=== PATIENT | male | born 1980 | race African-American/Black ===

== ENCOUNTER 2019-03-12 13:55 | Emergency (ER) | payer OTHER ==
[~2019-03-12] VITALS: Ht 180.3 cm; Wt 99.8 kg
--- NOTE | 2019-03-12 14:19 | PHYS DOC ---
Past Medical History Past Medical History: Hypertension, Schizophrenia Adult General Chief Complaint Chief Complaint: LACERATION/AVULSION HPI HPI Patient is a 42-year-old male, who arrives [facility], with a self-inflicted wound in his left antecubital fossa. The patient has a history of numerous previous attempts at self-harm in the past. He states he was trying to end his life today. He apparently obtained a razor illegally in the skilled nursing and cut his left arm. He has a wound with venous oozing on the medial aspect of his left antecubital fossa. His last tetanus was in May. He has no other injuries. Review of Systems Review of Systems Constitutional: Denies fever or chills [] Musculoskeletal: Denies back pain or joint pain [] Neurologic: Denies headache, focal weakness or sensory changes [] Psychiatric: Reports suicidal ideation. Current Medications Current Medications Current Medications Medications (Trade) Dose Ordered Sig/Alberto Start Time Stop Time Status Last Admin Dose Admin Lidocaine HCl (Lidocaine 1% 20ml Vial) 20 ml STK-MED ONCE 03/12/19 14:26 03/12/19 14:26 DC Lidocaine/ Epinephrine (LIDOCAINE 1%-EPI 1:100,000 Multi-Dose) 20 ml 1X ONCE 03/12/19 14:30 03/12/19 14:31 DC Allergies Allergies Allergies Coded Allergies Type Severity Reaction Last Updated Verified acetaminophen Allergy Unknown 03/12/19 Yes chlorpromazine Allergy Unknown 03/12/19 Yes haloperidol Allergy Unknown 03/12/19 Yes risperidone Allergy Unknown 03/12/19 Yes Physical Exam Physical Exam PHYSICAL EXAM: CONSTITUTIONAL: Well developed, well nourished HEAD: normocephalic, atraumatic EENT: PERRL, EOMI. Conjunctivae normal color, sclerae non-icteric; moist mucous membranes. NECK: Supple, non-tender; no meningismus. LUNGS: Lungs CTA, breathing even and unlabored. Normal air movement. HEART: Regular rate and rhythm, no murmur CHEST: No deformity; non-tender ABDOMEN: The abdomen is soft, and non-tender, no masses or bruits. EXTREM: Normal ROM; no deformity, no calf tenderness. Normal pulses palpable in all extremities. There is no pedal edema. There is an approximately 5 cm laceration on the medial aspect of the left antecubital fossa, with venous oozing without arterial bleeding. There is a palpable radial pulse on the distal left wrist. There is a weakly paplpable and strongly dopplerable ulnar pulse on the left arm. There are numerous scars, consistent with prior self-inflicted wounds on the forearms bilaterally. SKIN: No rash; no diaphoresis NEURO: Alert; normal speech and cognition; CN's grossly intact; strength grossly intact without focal deficit. BACK: No CVA TTP. Current Patient Data Vital Signs Vital Signs Date Time Temp Pulse Resp B/P (MAP) Pulse Ox O2 Delivery O2 Flow Rate FiO2 03/12/19 14:24 83 Room Air 03/12/19 13:55 97.6 22 87/76 (80) 100 97.6 EKG EKG [] Radiology/Procedures Radiology/Procedures [] Course & Med Decision Making Course & Med Decision Making LACERATION REPAIR PROCEDURE NOTE: The 5 centimeter laceration on the left arm was irrigated copiously with normal saline, anesthetized with 1% lidocaine with epinephrine, prepped with Betadine, and draped with sterile drapes. Sterile technique was used. The wound was closed with # 10 3-0 nylon running interlocking sutures. Good epithelial approximation was obtained. The patient tolerated the procedure well. There was no foreign body visualized in the wound, which was hemostatic after pressure dressing applied. 3:00 PM: The patient's condition remains stable. The skilled nursing guards who accompany the patient are adamant that the patient will be placed immediately on suicide watch, and will get mental health services at the skilled nursing. I discussed wound care and suture removal with the patient and guards. Dragon Disclaimer Dragon Disclaimer This electronic medical record was generated, in whole or in part, using a voice recognition dictation system. Departure Departure Impression: Primary Impression: Laceration of left upper extremity Disposition: HOME, SELF-CARE Condition: STABLE Patient Instructions: Laceration Care, Adult, Open Wound, Forearm, Easy-to- Read, Self-Destructive Behavior, Suicidal Feelings, How to Help Yourself RICCARDO DIAZ MD Mar 12, 2019 14:19
[2019-03-12] MEDS ORDERED: LIDOCAINE 1% Multi-Dose 20 ML VIAL. ONE (14:26)
[2019-03-12] MEDS ORDERED: LIDOCAINE 1%/EPI 1:100,000 20 ML VIAL. ONE (14:27)
[2019-03-12] MEDS ORDERED: LIDOCAINE 1%/EPI 1:100,000 20 ML VIAL. INJ ONE (14:30)
[2019-03-12 15:02] VITALS: BP 139/91
[2019-03-12] MEDS ORDERED: NEOMY/BACITR/POLYMYXIN OINT PACKET. TP ONE (15:45)
== END 2019-03-12 15:30 | disposition home or self-care (01) ==
LOC: EEVIPCON 13:55 → ER 13:55
DX: S51.012A Laceration without foreign body of left elbow, initial encounter (principal); I10 Essential (primary) hypertension; R45.851 Suicidal ideations; Z88.6 Allergy status to analgesic agent; Z88.8 Allergy status to other drugs, medicaments and biological substances; X78.8XXA Intentional self-harm by other sharp object, initial encounter; Y93.89 Activity, other specified; Y92.149 Unspecified place in prison as the place of occurrence of the external cause; Y99.8 Other external cause status
CPT/HCPCS: 12002; 99285; J3490